=== PATIENT | male | born 1945 | race Caucasian/White ===

== ENCOUNTER 2019-07-12 23:14 | Emergency (ER) | payer MEDICARE, OTHER ==
[~2019-07-12] VITALS: Ht 175.3 cm; Wt 88.4 kg
--- NOTE | 2019-07-12 23:33 | ED GU-Male ---
General Stated Complaint: UTI Source: patient Exam Limitations: no limitations History of Present Illness Date Seen by Provider: Jul 12, 2019 Time Seen by Provider: 23:20 Initial Comments The patient is a pleasant 73-year-old male presents for evaluation of 6 days of dysuria. He states that last week Thursday he went to an urgent care for dysuria, was diagnosed with UTI, and was sent home with 3 days of antibiotics. He is not sure which antibiotic he was prescribed but he states that he completed. A few days later his symptoms returned and now he states he is urinating every 5 minutes. He denies fevers or chills, back or flank pain, abdominal pain, nausea or vomiting, penile or testicular pain, or hematuria. The pt is later able to tell us he was placed on Macrobid. Timing/Duration: week (1) Severity/Quality: moderate Location: suprapubic Radiation: none Activities at Onset: none Prior Genitourinary Problems: none Associated Symptoms: dysuria Allergies and Home Medications Allergies Coded Allergies: No Known Drug Allergies (Unverified , 07/12/19) Patient Home Medication List Home Medication List Reviewed: Yes Review of Systems Review of Systems Constitutional: no symptoms reported EENTM: no symptoms reported Respiratory: no symptoms reported Cardiovascular: no symptoms reported Gastrointestinal: no symptoms reported Genitourinary: burning, dysuria, urgency Musculoskeletal: no symptoms reported Skin: no symptoms reported Psychiatric/Neurological: No Symptoms Reported Endocrine: No Symptoms Reported Hematologic/Lymphatic: No Symptoms Reported All Other Systemes Reviewed Negative Unless Noted: Yes Past Cpgbuts-Dbxaxg-Khzgei Hx Past Med/Social Hx: Reviewed Nursing Past Med/Soc Hx Patient Social History Recent Foreign Travel: No Contact w/Someone Who Travel: No Physical Exam Vital Signs Vital Signs - First Documented 07/12/19 23:37 Temp 36.9 Pulse 51 Resp 18 B/P (MAP) 158/71 (100) Pulse Ox 98 O2 Delivery Room Air Capillary Refill : Height, Weight, BMI Height: '" Weight: lbs. oz. kg; BMI Method: General Appearance: WD/WN, no apparent distress HEENT: PERRL/EOMI, pharynx normal Neck: non-tender, full range of motion Cardiovascular: regular rate, rhythm, no edema, no murmur Respiratory: chest non-tender, lungs clear, normal breath sounds, no respiratory distress, no accessory muscle use Gastrointestinal: normal bowel sounds, non tender, tenderness (mild suprapubic ttp) Back: normal inspection, no CVA tenderness, no vertebral tenderness Extremities: normal range of motion, no pedal edema, no calf tenderness Neurologic/Psychiatric: women specialist II-XII nml as tested, no motor/sensory deficits, alert, normal mood/affect, oriented x 3 Skin: normal color, warm/dry Progress/Results/Core Measures Suspected Sepsis SIRS Temperature: Pulse: Respiratory Rate: Blood Pressure / Mean: Results/Orders Lab Results Laboratory Tests Test 07/12/19 23:40 Range/Units Urine Color PALE YELLOW Urine Clarity SL CLOUDY Urine pH 6.5 5-9 Urine Specific Maxton <=1.005 1.016-1.022 Urine Protein NEGATIVE NEGATIVE Urine Glucose (UA) NEGATIVE NEGATIVE Urine Ketones NEGATIVE NEGATIVE Urine Nitrite NEGATIVE NEGATIVE Urine Bilirubin NEGATIVE NEGATIVE Urine Urobilinogen 0.2 NORMAL MG/DL Urine Leukocyte Esterase 2+ H NEGATIVE Urine RBC (Auto) 1+ H NEGATIVE Urine RBC 5-10 H /HPF Urine WBC >100 H /HPF Urine Squamous Epithelial Cells NONE /HPF Urine Crystals NONE /LPF Urine Bacteria FEW H /HPF Urine Casts NONE /LPF Urine Mucus NEGATIVE /LPF Urine Culture Indicated YES My Orders Orders - AAMIR TOVAR DO Ua Culture If Indicated (07/12/19 23:17) Urine Culture (07/12/19 23:40) Vital Signs/I&O 07/12/19 23:37 Temp 36.9 Pulse 51 Resp 18 B/P (MAP) 158/71 (100) Pulse Ox 98 O2 Delivery Room Air Capillary Refill : Progress Note : Progress Note @2355 - the patient has evidence of significant UTI. He will go home with a prescription for ciprofloxacin and will be given one tablet prior to discharge. Advised the patient to follow up with his PCP in the next 1-2 days and to return to the emergency Department immediately for new or worsening symptoms. Departure Impression Primary Impression: Acute UTI Disposition: 01 HOME, SELF-CARE Condition: Stable Departure-Patient Inst. Decision time for Depature: 00:00 Referrals: NO,LOCAL PHYSICIAN (PCP) Primary Care Physician Patient Instructions: Urinary Tract Infection, Adult (DC) Add. Discharge Instructions: Take the prescribed medicine instructed. Return to the emergency Department immediately for new or worsening symptoms. Follow-up with your doctor in the next 1-2 days. Scripts Phenazopyridine HCl (Pyridium) 200 Mg Tablet 1 TAB PO Q8H for 5 Days, #15 TAB Prov: AAMIR TOVAR DO 07/13/19 Ciprofloxacin HCl (Ciprofloxacin HCl) 500 Mg Tablet 500 MG PO BID for 7 Days, #14 TAB Prov: AAMIR TOVAR DO 07/13/19 AAMIR TOVAR DO Jul 12, 2019 23:33
[2019-07-12] MEDS ORDERED: FINA5TAB6 (23:49)
[2019-07-12] MEDS ORDERED: TAMSULOSIN (23:49)
[2019-07-12] MEDS ORDERED: ATOR80TA76 (23:49)
[2019-07-12] MEDS ORDERED: NITR0.4T42 (23:49)
[2019-07-12] MEDS ORDERED: ISOS30TA3 (23:49)
[2019-07-12] MEDS ORDERED: CLOP75TA28 (23:49)
[2019-07-12 23:54] LABS: CLARITY,URINE SL CLOUDY; COLOR,URINE PALE YELLOW; GLUCOSE, URINE (UA) NEGATIVE (NEGATIVE); PH,URINE 6.5 (5-9); PROTEIN,URINE NEGATIVE (NEGATIVE)
[2019-07-12 23:55] LABS: BACTERIA,URINE FEW /HPF; BILIRUBIN,URINE NEGATIVE (NEGATIVE); KETONES,URINE NEGATIVE (NEGATIVE); LEUKOCYTE ESTERASE ,URINE 2+ (NEGATIVE); NITRITE,URINE NEGATIVE (NEGATIVE); WBC,URINE >100 /HPF
[2019-07-13] MEDS ORDERED: CIPROFLOXACIN 500 MG (CIPRO) TABLET PO SCH
[2019-07-13] MEDS ORDERED: PHEN-640 PO (00:01)
[2019-07-13] MEDS ORDERED: CIPR500T4 PO (00:01)
[2019-07-13 00:10] VITALS: BP 129/65
== END 2019-07-13 00:10 | disposition home or self-care (01) ==
LOC: ER FS 23:22 → MERGE 23:22 → ER FS 07-13 00:10
DX: N39.0 Urinary tract infection, site not specified (principal)
CPT/HCPCS: 81000; 87077; 87088; 99283

== ENCOUNTER → 2019-09-06 | Outpatient (CLI) | payer MEDICARE, OTHER ==
[~2019-09-06] MED LIST: ATOR80TA76; CIPR500T4 PO; CLOP75TA28; FINA5TAB6; ISOS30TA3; NITR0.4T42; PHEN-640 PO; TAMSULOSIN
--- NOTE | 2019-09-06 16:34 | Diagnostic Imaging Report ---
MRI LT LOWER EXT JOINT W/O TECHNIQUE: Multiplanar, multisequence MR imaging of the left knee was performed without contrast. COMPARISON: None available. INDICATION: Left knee pain. No known injury. FINDINGS: MENISCI Medial meniscus: Complex tear of the posterior horn of the medial meniscus has a vertical longitudinal component near the free edge resulting in a parrot beak configuration. There is also horizontal cleavage tearing present in the undersurface. Lateral meniscus: Normal. LIGAMENTS ACL: Intact. PCL: Intact. MCL: Intact. LCL: The lateral collateral ligamentous complex is intact. EXTENSOR MECHANISM The extensor mechanism is intact. CARTILAGE Medial compartment: Medial compartment articular cartilage is well preserved without focal high-grade chondromalacia. Lateral compartment: The lateral compartment articular cartilage is preserved without high-grade chondromalacia. Patellofemoral compartment: Focal partial-thickness chondral fibrillation and fissuring at the patellar apex. Remainder of the articular cartilage throughout the patellofemoral compartment is preserved. BONE No fracture, stress fracture or osteonecrosis. SOFT TISSUE No knee effusion or Andrade's cyst. IMPRESSION: 1. Complex tear in the posterior horn of the medial meniscus likely has an unstable free edge margin. 2. 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 Otherwise, articular cartilage throughout the knee is well preserved. Dictated by: Dictated on workstation # [id number]
== END ==
LOC: RAD 15:21
PROVIDERS: ATTEND Nurse Practitioner
DX: M23.222 Derangement of posterior horn of medial meniscus due to old tear or injury, left knee (principal); M22.42 Chondromalacia patellae, left knee
CPT/HCPCS: 73721

== ENCOUNTER 2019-09-22 12:45 | Outpatient (CLI) | payer MEDICARE, OTHER ==
[~2019-09-22] VITALS: Ht 175 cm; Wt 93.3 kg
[~2019-09-22 12:45] MED LIST changes: -ATOR80TA76; +ATOR80TA76 PO
[2019-09-22] MEDS ORDERED: CLOP75TA28 PO (13:01)
[2019-09-22] MEDS ORDERED: TAMS0.4C98 PO (13:01)
[2019-09-22] MEDS ORDERED: ISOS30TA3 PO (13:01)
[2019-09-22] MEDS ORDERED: ASPI-586 PO (13:01)
[2019-09-22] MEDS ORDERED: NITR0.4T42 SL (13:01)
[2019-09-22] MEDS ORDERED: FINA5TAB6 PO (13:01)
[2019-09-22 13:05] VITALS: BP 117/66
== END 2019-09-22 13:47 | disposition home or self-care (01) ==
LOC: PREOP 12:45
PROVIDERS: ATTEND Orthopaedic Surgery
DX: Z01.818 Encounter for other preprocedural examination (principal)
CPT/HCPCS: 87081

== ENCOUNTER 2019-09-28 06:04 | Day surgery (SDC) | payer MEDICARE, OTHER ==
--- NOTE | 2019-09-15 13:52 | HISTORY AND PHYSICAL ---
DATE OF SERVICE: ADMISSION HISTORY AND PHYSICAL Date of service and surgery will be 09/28/2019 for left knee arthroscopy. HISTORY: The patient is a 73-year-old gentleman with complaints of left knee pain. He reports pain on the medial aspect of his knee, worse with pivoting and twisting. He is very active. He underwent an MRI shows a complex tear of the medial meniscus. Due to functional impairment and failure to improve with conservative measures, the patient elected to proceed with surgical intervention. REVIEW OF SYSTEMS: No chest pain, no shortness of breath, no dysuria. PAST MEDICAL HISTORY: BPH, coronary artery disease, trigger finger. PAST SURGICAL HISTORY: Appendectomy, trigger finger release, coronary stent placement. FAMILY HISTORY: Significant for kidney stones, prostate cancer. PRIMARY CARE PROVIDER: . MEDICATIONS: Finasteride, atorvastatin, aspirin, isosorbide, clopidogrel, tamsulosin, nitroglycerin. ALLERGIES: No known drug allergies. SOCIAL HISTORY: The patient denies alcohol, tobacco use. RADIOGRAPHS: Reveal mild medial and patellofemoral joint space narrowing. PHYSICAL EXAMINATION: GENERAL: The patient is well developed, well nourished, in no acute distress. HEENT: Normocephalic, atraumatic. Pupils are equal, round, reactive to light. Oropharynx is clear. NECK: Supple, no lymphadenopathy. LUNGS: Clear to auscultation bilaterally. HEART: Regular rate and rhythm. ABDOMEN: Soft, nontender, nondistended. EXTREMITIES: The left knee demonstrates moderate effusions, tender along his medial joint line pain medially with Akash's. No varus valgus laxity. Negative anterior and posterior drawer. Range of motion is 0/2/125. 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 PLAN: Left knee arthroscopy, chondroplasty, partial medial meniscectomy. The risks, benefits, options, ramifications and recovery were discussed at length with the patient. He understands and wishes to proceed. Job ID: [id number] DocumentID: [id number] Dictated Date: 09/15/2019 13:03:12 Outpatient Program Coordinator Date: 09/15/2019 13:50:29 Dictated By: RADHA HUDSON MD
[~2019-09-28] VITALS: Ht 175.3 cm; Wt 86.9 kg
[2019-09-28] VITALS (11 sets, daily range): BP systolic 95–143; BP diastolic 56–73
[~2019-09-28 06:04] MED LIST changes: +ASPI-586 PO; +CLOP75TA28 PO; +FINA5TAB6 PO; +ISOS30TA3 PO; +NITR0.4T42 SL; +TAMS0.4C98 PO
[2019-09-28] MEDS ORDERED: LACTATED RINGERS 1,000 ML IV PRN (06:41)
[2019-09-28] MEDS ORDERED: ceFAZolin INJECTION 1,000 MG in WATER (STERILE) FOR INJECTION 10 ML IV ONE (06:45)
[2019-09-28] MEDS ORDERED: ceFAZolin INJECTION 0 MG ONE (06:54)
[2019-09-28] MEDS ORDERED: WATER (STERILE) FOR INJECTION 10 ML ONE (06:59)
[2019-09-28] MEDS ORDERED: ceFAZolin INJECTION 1,000 MG ONE (06:59)
[2019-09-28] MEDS ORDERED: MIDAZOLAM 2 MG/2 ML (VERSED) VIAL ONE (07:04)
[2019-09-28] MEDS ORDERED: LIDOCAINE PF 2% 5 ML (XYLOCAINE) VIAL ONE (07:04)
[2019-09-28] MEDS ORDERED: SEVOFLURANE (ULTANE) 15 ML INHAL SOLN ONE (07:04)
[2019-09-28] MEDS ORDERED: DEXAMETHASONE 10 MG/ML (DECADRON) 1 ML VIAL ONE (07:04)
[2019-09-28] MEDS ORDERED: ONDANSETRON 4 MG/2 ML (SDV) Z0FRAN ONE (07:04)
[2019-09-28] MEDS ORDERED: proPOfol 200 MG/20 ML (DIPRIVAN) VIAL IV ONE (07:04)
[2019-09-28] MEDS ORDERED: fentaNYL INJECTION 100 MCG/2 ML AMP ONE (07:05)
[2019-09-28] MEDS ORDERED: morphine PF (DURAMORPH) 10 MG/10 ML AMP ONE (07:17)
[2019-09-28] MEDS ORDERED: BUPIVACAINE 0.25% 30 ML (SENSORCAINE) VIAL ONE (07:17)
--- NOTE | 2019-09-28 07:29 | Progress Note-Pre Operative ---
Pre-Operative Progress Note H&P Reviewed The H&P was reviewed, patient examined and no changes noted. Date Seen by Provider: Sep 28, 2019 Time Seen by Provider: 07:20 Date H&P Reviewed: Sep 28, 2019 Time H&P Reviewed: 07:11 Pre-Operative Diagnosis: left knee medial meniscus tear and chondromalacia RADHA HUDSON MD Sep 28, 2019 07:29
[2019-09-28] MEDS ORDERED: HYDROcodone/APAP 7.5 MG/325 MG (LORTAB, LORCET PLUS) TABLET PO PRN (07:30)
--- NOTE | 2019-09-28 07:30 | Progress Note-Post Operative ---
Post-Operative Progess Note Surgeon (s)/Educational Speech Language Clinician (s) Surgeon RADHA HUDSON MD Educational Speech Language Clinician: Pradeep Falcon Pre-Operative Diagnosis left knee medial meniscus tear and chondromalacia Post-Operative Diagnosis left knee medial meniscus tear and chondromalacia of the medial femoral condyle Procedure & Operative Findings Date of Procedure 09/28/19 Procedure Performed/Findings left knee arthroscopic partial medial meniscectomy and chondroplasty of the medial femoral condyle Anesthesia Type GETA Estimated Blood Loss Estimated blood loss (mL): minimal Specimens/Packing Specimens Removed none Packing: none RADHA HUDSON MD Sep 28, 2019 07:30
[2019-09-28] MEDS ORDERED: morphine INJ 10 MG/ML 1ML (SYR OR VIAL) IVP ONE (08:15)
[2019-09-28] MEDS ORDERED: HYDROmorphone 2 MG/ML VIAL (DILAUDID) IV ONE (08:15)
[2019-09-28] MEDS ORDERED: ONDANSETRON 4 MG/2 ML (SDV) Z0FRAN IVP PRN (08:15)
[2019-09-28] MEDS ORDERED: HYDR-34 PO (09:14)
--- NOTE | 2019-09-28 10:39 | Physical Therapy Ortho Eval ---
PT Orthopedic Evaluation Type of Surgery Knee Scope (left) Prior Level of Function Current Living Status: Spouse Locomotion (Upon Admit): Independent Established Durable Medical Eq: Quad Cane Pt has a 3 prong cane at home. Subjective Subjective Agrees to PT. Reports he can get additional medical equipment if needed. he has a 3 prong cane at home. Entry Into Home: Stairs With Railing Steps Into Home: 3 Motor Control Motor Control: Motor Control WNL ROM ROM: WFL Strength Strength: WFL Transfer Transfers (B, C, W/C) (FIM): 5 (indep at discharge. ) Gait Right Lower Extremity: Right Weight Bearing Status RLE: Full Weight Bearing Left Lower Extremity: Left Weight Bearing Status LLE: Weight Bearing/Tolerated Gait (FIM): 5 (mod indep at discharge with a QC) Distance (FIM): 0=does not occure Summary/Comments Pt able to safely ambulate with a quad cane and often holds it in the air. Treatment Rendered Treatment: Gait Train, Step Train Exercise Instruction: Quad Sets, Straight Leg Raise, Heel Slides Assessment/Goals Goal Time Frame: 1 Visit Understands HEP: Yes Safe Ambulation: Yes Plan Treatment Plan: Discharge Instructed pt in HEP. Gait training with education on use of AD; step training. Pt verbalized and demonstrated understanding of all. PT/Family Agrees to Plan: Yes Time Time In: 950 Time Out: 1010 Total Billed Treatment Time: 20 Billed Treatment Time visit EVL 20 DEEPAK SANTILLAN PT Sep 28, 2019 10:39
--- NOTE | 2019-09-28 12:56 | OPERATIVE REPORT ---
DATE OF SERVICE: PREOPERATIVE DIAGNOSIS: Left knee medial meniscus tear. POSTOPERATIVE DIAGNOSES: 1. Left knee medial meniscus tear. 2. Left knee chondromalacia of the medial femoral condyle. PROCEDURE: 1. Left knee arthroscopic partial medial meniscectomy. 2. Left knee arthroscopic chondroplasty of the medial femoral condyle. SURGEON: Gaston Hudson MD FEATHER TRIMMER: Pradeep Falcon, who assisted throughout the procedure and closed the incisions. ANESTHESIA: General endotracheal by Dr. Goyal. TOURNIQUET TIME: Not applicable. ESTIMATED BLOOD LOSS: Minimal. DRAINS: None. COMPLICATIONS: None. POSTOPERATIVE PLAN: Routine arthroscopy protocol. The patient was transferred to the recovery room awake and in stable condition. STATEMENT OF MEDICAL NECESSITY: The patient is a 73-year-old gentleman with complaints of left medial knee pain, catching, locking and swelling. He tried rest, activity modifications, anti-inflammatories. An MRI revealed a medial meniscus tear. Due to functional impairment and failure to improve with conservative measures, the patient elected to proceed with surgical intervention. Examination under anesthesia revealed range of motion of 0/0/135 with negative Felicitas, negative anterior and posterior drawer. No varus valgus laxity and negative pivot shift. Arthroscopic findings of patella and trochlea demonstrated no gross chondral abnormalities. Medial and lateral gutters were clear. The ACL and PCL were intact. Lateral compartment demonstrated no meniscal or chondral pathology. The medial compartment demonstrated a complex tear of the posterior horn of the medial meniscus involving approximately one-half of the posterior horn. There was grade II chondral flap over the central weightbearing portion of the femoral condyle in an 8 x 8 area. PROCEDURE IN DETAIL: After risks and benefits of procedure were discussed and questions were answered and informed consent was signed and placed on chart, the operative site was confirmed in the preoperative holding area initialed by the surgeon. The patient was transferred to the operating room and after adequate levels of general endotracheal anesthetic were obtained, a timeout was called, confirming the operative site. The left lower extremity was prepped and draped in the usual sterile fashion. The knee joint was injected with 60 mL of fluid and standard inferolateral portal was placed with the arthroscope under direct visualization, inferior medial portal was created. The menisci and cruciates carefully probed with the above findings noted. The unstable chondral flaps of the medial femoral condyle were debrided with shaver back to a stable edge. The scope was redirected posteriorly where the posterior horn of the medial meniscus was debrided with a biter and shaver removing approximately 1/2 of the posterior horn. This was carefully probed with no further tearing or instability noted. The knee was copiously irrigated. The portal sites were closed with 4-0 nylon in simple interrupted fashion. Knee was injected with Duramorph. Portal sites were infiltrated with plain Marcaine. A soft dressing was applied. The patient was transferred to the recovery room awake and in stable condition. Job ID: [id number] DocumentID: [id number] Dictated Date: 09/28/2019 08:06:54 Associate Loan Officer Date: 09/28/2019 12:56:00 Dictated By: GASTON HUDSON MD
--- NOTE | 2019-09-28 13:13 | Anesthesia-General Post-Op ---
General Patient Condition Mental Status/LOC: Same as Preop Cardiovascular: Satisfactory Nausea/Vomiting: Absent Respiratory: Satisfactory Pain: Controlled Complications: Absent Post Op Complications Complications None Follow Up Care/Instructions Patient Instructions None needed. Anesthesia/Patient Condition Patient Condition Patient was seen this morning after the procedure and he was doing well, no complaints, stable vital signs, no apparent adverse anesthesia problems. VICENTA ROJAS DO Sep 28, 2019 13:13
== END 2019-09-28 10:40 | disposition home or self-care (01) ==
LOC: SDC 06:04
PROVIDERS: ATTEND Orthopaedic Surgery
DX: S83.232A Complex tear of medial meniscus, current injury, left knee, initial encounter (principal); M94.262 Chondromalacia, left knee; I25.10 Atherosclerotic heart disease of native coronary artery without angina pectoris; Z79.02 Long term (current) use of antithrombotics/antiplatelets; Z90.89 Acquired absence of other organs; Z79.899 Other long term (current) drug therapy; Z80.42 Family history of malignant neoplasm of prostate; Z82.49 Family history of ischemic heart disease and other diseases of the circulatory system

== ENCOUNTER → 2021-02-14 | Outpatient (CLI) | payer MEDICARE, OTHER ==
[~2021-02-14] MED LIST changes: -CIPR500T4 PO; +CIPR500T5 PO; +HYDR-34 PO; -ISOS30TA3; -ISOS30TA3 PO; +ISOS30TA82; +ISOS30TA82 PO; -TAMS0.4C98 PO; +TMSL.4C PO
--- NOTE | 2021-02-14 13:13 | Diagnostic Imaging Report ---
INDICATION: Right elbow pain. COMPARISON: None. FINDINGS: Multiple radiographic views of the right elbow show no fractures, dislocations, or other acute bony abnormalities identified. Joint spaces are well maintained throughout. The soft tissues appear unremarkable. No radiopaque foreign bodies are identified. IMPRESSION: No acute fractures or dislocations of the right elbow. Dictated by: Dictated on workstation # [id number]
== END ==
LOC: RAD FS 12:57
PROVIDERS: ATTEND Nurse Practitioner
DX: M25.521 Pain in right elbow (principal)
CPT/HCPCS: 73080

== ENCOUNTER → 2022-07-29 | Outpatient (CLI) | payer MEDICARE, OTHER | LOC: LAB FS 15:44 | PROVIDERS: ATTEND Registered Nurse Emergency | DX: R41.3 Other amnesia (principal) | CPT/HCPCS: 36415; 82607; 84443 ==

== ENCOUNTER 2022-09-24 09:50 | Emergency (ER) | payer MEDICARE, OTHER ==
[~2022-09-24] VITALS: Ht 175 cm; Wt 90.0 kg
--- NOTE | 2022-09-24 10:39 | ED Lower Extremity ---
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 HE has a laceration under his 2nd right toe. Source: patient Exam Limitations: no limitations History of Present Illness Date Seen by Provider: Sep 24, 2022 Time Seen by Provider: 10:10 Initial Comments Patient is a 76-year-old male presents with right toe injury. Patient works for the formerly [employer] and he broke up large pile of [employer] salt which fell on his foot lacerating his toe pad under his right toe. Injury occurred just prior to ED arrival. Some isolated injury. Patient's tetanus is up-to-date. Onset: just prior to arrival Severity: mild Pain/Injury Location: right 2nd toe Method of Injury: other Modifying Factors: Improves With Other Allergies and Home Medications Allergies Coded Allergies: tramadol (Verified Allergy, Mild, N/V, 09/22/19) Patient Home Medication List Home Medication List Reviewed: Yes Aspirin (Aspir 81) 81 Mg Tablet.dr, 81 MG PO DAILY, (Reported) Entered as Reported by: JAYCEE BENJAMIN on 09/22/19 1301 Atorvastatin Calcium (Atorvastatin Calcium) 80 Mg Tablet, 80 MG PO HS, (Reported) Entered as Reported by: KIM GILES on 07/12/19 2349 Clopidogrel Bisulfate (Clopidogrel) 75 Mg Tablet, 75 MG PO DAILY, (Reported) Entered as Reported by: JAYCEE BENJAMIN on 09/22/19 1301 Finasteride (Finasteride) 5 Mg Tablet, 5 MG PO HS, (Reported) Entered as Reported by: JAYCEE BENJAMIN on 09/22/19 1301 Hydrocodone Bit/Acetaminophen (Lortab 7.5 Mg Tablet) 1 Ea Tablet, 1 EA PO Q4H PRN for PAIN-MODERATE Prescribed by: TUCKER STORM on 09/28/19 0914 Isosorbide Mononitrate (Isosorbide Mononitrate ER) 30 Mg Tab.er.24h, 60 MG PO DAILY, (Reported) Entered as Reported by: JAYCEE BENJAMIN on 09/22/19 1301 Nitroglycerin (Nitroglycerin) 0.4 Mg Tab.subl, 0.4 MG SL PRN, (Reported) Entered as Reported by: JAYCEE BENJAMIN on 09/22/19 1301 Tamsulosin HCl (Flomax) 0.4 Mg Cap, 0.4 MG PO DAILY, (Reported) Entered as Reported by: JAYCEE BENJAMIN on 09/22/19 1301 Review of Systems Constitutional: see HPI Musculoskeletal: see HPI Past Lnyccok-Bhmfiy-Izynqr Hx Patient Social History Tobacco Use?: No Substance use?: No Alcohol Use?: No Immunizations Up To Date Tetanus Booster (TDap): Unknown Seasonal Allergies Seasonal Allergies: No Past Medical History Surgeries: Yes (CARDIAC STENTS X2, FINGER AMPUTATION, TENDON L THUMB) Appendectomy Respiratory: No Currently Using CPAP: No Currently Using BIPAP: No Cardiac: Yes Coronary Artery Disease, High Cholesterol Neurological: No Sexually Transmitted Disease: No HIV/AIDS: No Genitourinary: No Benign Prostatic Hyperpl, Bladder Infection Gastrointestinal: No Musculoskeletal: No Endocrine: No HEENT: Yes (GLASSES) Loss of Vision: Denies Hearing Impairment: Denies Cancer: Yes Skin Psychosocial: No Integumentary: No Blood Disorders: No Adverse Reaction/Blood Tranf: No (N/A) Physical Exam Vital Signs Vital Signs - First Documented 09/24/22 10:01 Temp 36.4 Pulse 83 B/P (MAP) 153/83 (106) Pulse Ox 98 O2 Delivery Room Air Capillary Refill : Height, Weight, BMI Height: '" Weight: lbs. oz. kg; 29.00 BMI Method: General Appearance: WD/WN, no apparent distress Feet: right foot soft tissue tenderness, right foot other (2 cm full-thickness semicircumferential laceration under right toe pad extending to medial dorsal surface. No joint or nail involvement. No exposed bone) Procedures/Interventions Wound Location: Lower Extremities (2 cm full-thickness semicircumferential laceration after right second toe,) Wound Length (cm): 2 Wound's Depth, Shape: sub Q Wound Explored: clean Anesthesia: 1% Lidocaine Wound Debrided: moderate Suture: Ethlion Suture Size: 5-0 Number of Sutures: 6 (Running interlocked) Progress Wound cleansed and closed. Progress/Results/Core Measures Results/Orders My Orders Orders - PILAR ORTIZ DO Toe(S) (09/24/22 10:30) Ed Ortho/Other Supplies Order (09/24/22 10:30) Dipht,Pertuss(Acell),Tet Adult (Boostrix (09/24/22 10:45) Cephalexin Capsule (Keflex Capsule) (09/24/22 10:45) Vital Signs/I&O 09/24/22 10:01 Temp 36.4 Pulse 83 B/P (MAP) 153/83 (106) Pulse Ox 98 O2 Delivery Room Air Blood Pressure Mean: 106 Departure Communication (Admissions) X-ray toe: Fracture distal phalanx of second toe Open fracture of right second toe. Wound extensively cleansed, closed, bandaged and placed in shoe splint. Tetanus updated and first dose of antibiotics given. Typical wound care instructions provided. Return precautions reviewed. Patient verbalizes understanding agreement discharge instructions prior to departure. Impression Primary Impression: Laceration of toe of right foot Additional Impression: Fracture of toe of right foot Disposition: HOME, SELF-CARE Condition: Stable Departure-Patient Inst. Decision time for Depature: 10:54 Referrals: HELEN REIS APRN (PCP) Primary Care Physician NELLY BORDEN MD (Family) Primary Care Physician Patient Instructions: Toe Fracture ED, Laceration Repair With Stitches (DC) Add. Discharge Instructions: Please keep wound clean dry and covered. Do not get toe wet. Take Tylenol for pain and antibiotics as directed. Return to the ED in 10 to 12 days for suture removal or sooner if signs of infection wear. All discharge instructions reviewed with patient and/or family. Voiced understanding. Scripts Cephalexin (Cephalexin) 500 Mg Tablet 500 MG PO TID, #21 TAB Prov: PILAR ORTIZ DO 09/24/22 PILAR ORTIZ DO Sep 24, 2022 10:39
[2022-09-24] MEDS ORDERED: TETANUS,DIPTH,PERTUSS P/F (BOOSTRIX) 0.5 ML VIAL IM ONE (10:45)
[2022-09-24] MEDS ORDERED: CEPHALEXIN 250 MG (KEFLEX) CAP PO SCH (10:45)
--- NOTE | 2022-09-24 10:47 | Diagnostic Imaging Report ---
INDICATION: Injury to right 2nd toe AP, oblique, and lateral views of the right toes are obtained. There is a fracture of the 2nd distal phalanx with horizontal orientation, with avulsion of the distal tuft. Remaining structures are intact. Joint spaces are unremarkable. IMPRESSION: Fracture of 2nd distal phalanx as described above. Dictated by: Dictated on workstation # [id number]
[2022-09-24] MEDS ORDERED: CEPH500T PO (10:56)
[2022-09-24 11:02] VITALS: BP 153/83
== END 2022-09-24 11:04 | disposition home or self-care (01) ==
LOC: EDUNIT# 09:50 → ER FS 09:52
DX: S92.531B Displaced fracture of distal phalanx of right lesser toe(s), initial encounter for open fracture (principal); Z23 Encounter for immunization; W20.8XXA Other cause of strike by thrown, projected or falling object, initial encounter; Y92.410 Unspecified street and highway as the place of occurrence of the external cause; Y99.0 Civilian activity done for income or pay
CPT/HCPCS: 12041; 73660; A6223; 90715

== ENCOUNTER 2022-10-07 07:35 | Emergency (ER) | payer OTHER ==
[~2022-10-07] VITALS: Ht 175.3 cm; Wt 86.2 kg
[~2022-10-07 07:35] MED LIST changes: +CEPH500T PO
--- NOTE | 2022-10-07 07:41 | ED Suture Removal/Wound Check ---
Suture/Wound Re-check Suture Removal/Wound Recheck : Suture Removal/Wound Recheck: Sutures removed by MD Castano I personally removed the stitches on his right 2nd toe. Pt did have tenderness to palpation of the distal phalanx of the toe where he had a fracture from this injury. No evidence of infection. Wound appears to be healed. Counseled on follow up and return precautions and to check with PCP if having continued pain/concerns. General Appearance: WD/WN, no apparent distress Neuro/Tendon: normal sensation, normal motor functions, normal tendon functions Skin Exam: warm/dry, ecchymosis (mild bruising and swelling to distal phalanx 2nd toe right foot) Physical Exam Vital Signs Vital Signs - First Documented 10/07/22 07:48 Temp 35.9 Pulse 59 Resp 18 B/P (MAP) 137/74 Pulse Ox 98 O2 Delivery Room Air Capillary Refill : General Appearance: WD/WN, no apparent distress Cardiovascular: normal peripheral pulses Skin: warm/dry, ecchymosis (mild bruising to right 2nd toe distal phalanx with mild swelling) Skin Problem Location: lower extremities (right 2nd toe plantar surface at DIP joint healing wound with stitches in place. ) Skin Problem Character: tenderness (tender to palpation of distal phalanx right 2nd big toe) Departure Impression Primary Impression: Encounter for removal of sutures Disposition: 01 HOME, SELF-CARE Condition: Stable Departure-Patient Inst. Decision time for Depature: 07:41 Referrals: NELLY BORDEN MD (Family) Primary Care Physician HELEN REIS APRN (PCP) Primary Care Physician Patient Instructions: SUTURE REMOVAL-UNCOMPLICATED Add. Discharge Instructions: Follow up with clinic for continued concerns All discharge instructions reviewed with patient and/or family. Voiced understanding. KETAN GOODMAN MD Oct 07, 2022 07:41
[2022-10-07 07:48] VITALS: BP 137/74
== END 2022-10-07 08:00 | disposition home or self-care (01) ==
LOC: EDUNIT# 07:35 → ER FS 07:36
DX: S91.114D Laceration without foreign body of right lesser toe(s) without damage to nail, subsequent encounter (principal)